=== PATIENT | female | born 1950 | race Caucasian/White ===

== ENCOUNTER → 2018-01-25 | Outpatient (CLI) | payer OTHER ==
[~2018-01-25] MED LIST: FURO20TA3 PO; LOSA25TA54 PO; POTA10TA12 PO
--- NOTE | 2018-01-25 17:08 | KCIC ---
NECK SOFT TISSUE History: Fullness of left supraclavicular fossa Comparison: None. Findings: Multiple sonographic images directed toward the site of concern of the left supraclavicular region are submitted. There are some small lymph nodes in the region of concern with the largest 0.8 x 0.4 x 0.4 cm with normal sonographic architecture, not considered significantly enlarged. No discrete fluid collection or other mass is demonstrated although reportedly there is visible difference comparing with the right side. Impression: 1. There are a few small nodes on ultrasound of the left supraclavicular region, no other mass or fluid collection demonstrated. Electronically signed by: Bird Joyner MD (01/25/2018 5:04 PM) [id number]
== END | disposition home or self-care (01) ==
LOC: KCIC US 08:44
PROVIDERS: ATTEND Physician Assistant Medical
DX: R59.0 Localized enlarged lymph nodes (principal)
CPT/HCPCS: 76536

== ENCOUNTER → 2018-12-19 | Outpatient (CLI) | payer OTHER ==
--- NOTE | 2018-12-19 14:43 | RAD ---
CHEST PA LATERAL History: Acute bronchitis Comparison: None. Findings: Frontal and lateral views of chest were obtained. Sternal wires are present. Atrial appendage noted. Loop recorder device noted. Prosthetic aortic valve noted. Sternal wires evident. The cardiomediastinal silhouette is normal. Pulmonary vasculature is normal. The lungs are clear. No pleural effusion or pneumothorax is seen. There is no acute bone abnormality. Upper abdominal surgical clips are present. IMPRESSION: No acute cardiopulmonary process. Electronically signed by: Mamadou Ruff MD (12/19/2018 2:40 PM) [facility]
== END | disposition home or self-care (01) ==
LOC: RAD 13:33
PROVIDERS: ATTEND Internal Medicine
DX: J20.9 Acute bronchitis, unspecified (principal); Z95.2 Presence of prosthetic heart valve
CPT/HCPCS: 71046